=== PATIENT | female | born 2000 | race Caucasian/White ===

== ENCOUNTER 2021-01-10 20:00 | Emergency (ER) | payer MEDICAID ==
[~2021-01-10] VITALS: Ht 170.2 cm; Wt 63.6 kg
[~2021-01-10 20:00] MED LIST: ADVIL200 MG PO; CLARITIN PO; SINGULAIR5 MG PO
[2021-01-10 20:11] VITALS: TEMP 97.5
[2021-01-10 21:53] VITALS: BP 109/65; PULSE 52
== END 2021-01-10 21:58 | disposition home or self-care (01) ==
LOC: COL.ER 20:00
DX: M25.561 Pain in right knee (principal); J02.0 Streptococcal pharyngitis; F17.290 Nicotine dependence, other tobacco product, uncomplicated
CPT/HCPCS: L1846